=== PATIENT | male | born 1985 | race African-American/Black ===

== ENCOUNTER 2025-01-16 20:22 | Emergency (ER) | payer MEDICAID, OTHER ==
[~2025-01-16] VITALS: Ht 190.5 cm; Wt 100.0 kg
[2025-01-16 20:25] VITALS: O2SAT 98
[2025-01-16] MEDS: FAMOTIDINE 20MG/2ML VIAL IV ONE (20:58)
[2025-01-16] MEDS: EPINEPHRINE 1:1000 1 MG/ML AMP INJ ONE (20:59)
[2025-01-16] MEDS: METHYLPREDNISOLONE SOD SUCC 125MG/2ML (ACT-O-VIAL) IV ONE (21:04)
[2025-01-17] VITALS: TEMP 36.9
[2025-01-17] MEDS ORDERED: B50 MT (00:23)
[2025-01-17] MEDS ORDERED: EPIN0.3P3 IM (00:23)
[2025-01-17 00:44] VITALS: BP 148/90; PULSE 86; RESP 18; O2SAT 99
== END 2025-01-17 00:48 | disposition home or self-care (01) ==
LOC: ER 20:22
DX: R22.0 Localized swelling, mass and lump, head (principal); T45.0X5A Adverse effect of antiallergic and antiemetic drugs, initial encounter; Y92.89 Other specified places as the place of occurrence of the external cause
CPT/HCPCS: 96374; 96375; 99284; J3490 ×2; J2919; Z7610 ×2

== ENCOUNTER 2025-06-06 13:07 | Emergency (ER) | payer MEDICAID, OTHER ==
[~2025-06-06] VITALS: Ht 190.5 cm; Wt 102.0 kg
[~2025-06-06 13:07] MED LIST: DIPH50CA42 MT; EPIN0.3P3 IM
[2025-06-06 13:14] VITALS: TEMP 36.5; O2SAT 97
[2025-06-06] MEDS: KETOROLAC 30MG/ML VIAL IV ONE (14:00)
[2025-06-06 14:14] LABS: BASOPHILS % 0.5 % (0.0-2.0); EOSINOPHILS % 1.0 % (0.0-5.0); HEMATOCRIT. 37.7 % (42.0-52.0); HEMOGLOBIN. 12.4 g/dL (14.0-18.0); LYMPHOCYTES % 15.5 % (20.0-50.0); MEAN PLATELET VOLUME 7.5 fl (7.4-10.4); MONOCYTES % 7.4 % (2.0-8.0); NEUTROPHILS % 75.6 % (40.0-76.0); PLATELET 289 x1000/uL (130-400); RED BLOOD CELL COUNT 4.34 mill/uL (4.7-6.1); RED CELL DISTRIBUTION WIDTH 14.3 % (11.6-14.6)
[2025-06-06 14:30] LABS: CREATININE 1.1 mg/dL (0.6-1.3); UREA NITROGEN BLOOD 9 mg/dL (9-23)
[2025-06-06 14:32] LABS: TROPONIN I HIGH SENSITIVITY < 4 ng/L (3.0-53)
[2025-06-06 15:15] VITALS: TEMP 97.7
[2025-06-06] MEDS: ACETAMINOPHEN 325MG TABLET PO SCH (15:15)
[2025-06-06 15:17] VITALS: BP 139/79; PULSE 83; RESP 16; O2SAT 100
[2025-06-06] MEDS ORDERED: AMLO10TA80 MT (15:20)
== END 2025-06-06 15:45 | disposition home or self-care (01) ==
LOC: ER 13:07
DX: R07.9 Chest pain, unspecified (principal); I10 Essential (primary) hypertension; R51.9 Headache, unspecified
CPT/HCPCS: 99285; 96374; 71045; 80048; 85025; 85379; 84484; 36415; 93005; J1885